=== PATIENT | female | born 1985 | race Caucasian/White ===

== ENCOUNTER 2017-11-10 22:47 | Observation (INO) | payer OTHER ==
[2017-11-11] MEDS ORDERED: HYDROmorphone 0.5 MG/0.5 ML SYRINGE IVP STA (00:01)
[2017-11-11] MEDS ORDERED: ONDANSETRON 4 MG/2 ML VIAL IVP STA (00:01)
[2017-11-11] MEDS ORDERED: SODIUM CHLORIDE 0.9% 1,000 ML IV ONE (00:02)
--- NOTE | 2017-11-11 00:16 | ED ---
Female Urogenital HPI - General Chief complaint: Vaginal Bleeding Stated complaint: hemorrhage Time Seen by Provider: 11/10/17 23:23 Source: EMS Mode of arrival: EMS Limitations: no limitations - History of Present Illness Initial comments: This patient is a 32-year-old woman transferred from [facility] with concerns of possible retained products of conception and possible endometritis. The patient informs us that she had elective on Friday in [place]. She states that since she went home she has been having continued bleeding, and that today she was going through approximately a pad every 15 minutes. She was also having pelvic pains that she described as moderate to severe, crampy/aching. She went to [facility], where she had lab testing and ultrasound. She had some leukocytosis and reportedly had retained products of conception on the ultrasound. She was transferred here as there is no awning assembler coverage there. Additional history reveals that the patient is Rh-, but did receive Rhogam at the clinic on Friday. MD Complaint: vaginal bleeding, pelvic pain Onset/Timin -: days(s) Location: suprapubic Severity: moderate Quality: cramping, sharp Consistency: constant Improves with: medication Worsens with: none Last Menstrual Period: 11/07/17 - Related Data : 4 Para: 2 A: 2 Home Medications Medication Instructions Recorded Confirmed Ibuprofen [Motrin] 800 mg PO Q6H PRN 11/10/17 11/11/17 Allergies Allergy/AdvReac Type Severity Reaction Status Date / Time codeine AdvReac Nausea & Verified 11/11/17 01:50 Vomiting Review of Systems ROS Statement: Those systems with pertinent positive or pertinent negative responses have been documented in the HPI. ROS Other: All systems not noted in ROS Statement are negative. Constitutional: Reports: fever, chills Respiratory: Denies: cough, dyspnea Cardiovascular: Denies: chest pain, palpitations, syncope Gastrointestinal: Reports: abdominal pain, nausea. Denies: vomiting, diarrhea, melena, hematochezia Genitourinary: Reports: abnormal menses. Denies: dysuria, hematuria Musculoskeletal: Denies: back pain Skin: Denies: rash Neurological: Denies: headache, weakness, numbness Hematological/Lymphatic: Denies: easy bleeding Past Medical History Past Medical History: No Reported History History of Any Multi-Drug Resistant Organisms: None Reported Past Surgical History: Section Additional Past Surgical History / Comment(s): right fallopian tube removal Past Psychological History: Anxiety Smoking Status: Current every day smoker Past Alcohol Use History: None Reported Past Drug Use History: None Reported - Past Family History Father Family Medical History: Cancer Additional Family Medical History / Comment(s): leukemia General Exam Limitations: no limitations General appearance: alert, in no apparent distress, other (angry) Head exam: Present: atraumatic, normocephalic Eye exam: Present: normal appearance. Absent: scleral icterus, conjunctival injection Neck exam: Present: normal inspection, full ROM Respiratory exam: Present: normal lung sounds bilaterally. Absent: respiratory distress, wheezes, rales, rhonchi, stridor Cardiovascular Exam: Present: regular rate, normal rhythm, normal heart sounds. Absent: systolic murmur, diastolic murmur, rubs, gallop Neurological exam: Present: alert Psychiatric exam: Present: agitated Skin exam: Present: warm, dry, intact, normal color. Absent: rash Course Vital Signs 11/10/17 11/11/17 22:56 00:57 Temperature 99.1 F 98.8 F Pulse Rate 87 68 Respiratory 18 16 Rate Blood Pressure 110/67 115/70 O2 Sat by Pulse 98 98 Oximetry Medical Decision Making - Medical Decision Making From my prior to my initial interaction, the patient is quite angry. She yells that she is angry about the weight, about having to repeat her story, about not being able to eat anything, about the other hospital having to poke her twice taking 10 and then 6 tubes of blood. She initially wants to sign out AGAINST MEDICAL ADVICE. I did apologize for the delay, and for having to review the previous history. Patient refused gynecologic exam here. Patient refused repeat hemoglobin tonight. Case details and US result was discussed with Dr. Heck, limited patient for further antibiotics and to ensure that D+C is not required. Disposition Clinical Impression: Endometritis following abortive Disposition: ADMITTED IP TO THIS HOSP Condition: Fair
[2017-11-11] MEDS ORDERED: NALOXONE 0.4 MG/ML 1 ML VIAL IV PRN (00:28)
[2017-11-11] MEDS ORDERED: ONDANSETRON 4 MG/2 ML VIAL IVP PRN (00:28)
[2017-11-11] MEDS ORDERED: SODIUM CHLORIDE 0.9% 1,000 ML IV SCH (00:30)
[2017-11-11 00:58] VITALS: RESP 16
[2017-11-11] MEDS ORDERED: cefOXitin IN SWFI 2 GM/10 ML SYRINGE IVP SCH (01:00)
[2017-11-11 01:24] VITALS: BMI 29.1
[2017-11-11 01:56] VITALS: BP 141/72; PULSE 78; TEMP 97.9
[2017-11-11] MEDS: HYDROmorphone 0.5 MG/0.5 ML SYRINGE IVP PRN ×2 (03:31→06:37)
[2017-11-11] MEDS ORDERED: FAMOTIDINE 20 MG TAB PO SCH (09:00)
[2017-11-11] MEDS ORDERED: DOXYCYCLINE 50 MG CAP PO SCH (09:00)
--- NOTE | 2017-11-11 09:59 | P.HPOB ---
History of Present Illness H&P Date: 11/11/17 Chief Complaint: Probable endometritis The patient is a 32-year-old multiparous patient who, by report from the emergency room, underwent an elective last week. She then began to have fever as well as pain and presented to the [facility] emergency room at which time she was found with a fever and an elevated white count. She was transferred to the [facility] emergency room as there is no gynecologic services available at [facility]. In the emergency room, she refused further pelvic examination. Ultrasound performed during her evaluation demonstrated findings consistent with possible retained products of conception. Given her elevated white count and the febrile state, she was admitted for observation and IV antibiotic therapy with the intention of treatment until afebrile for 24-48 hours. Prior to my further evaluating her this morning, she chose to leave AGAINST MEDICAL ADVICE though she refused to sign the AMA papers. She did reportedly receive 1 dose of Mefoxin intravenously. Review of Systems Review of systems is confined to history of present illness. Past Medical History Past Medical History: No Reported History Additional Past Medical History / Comment(s): ectopic 2014 History of Any Multi-Drug Resistant Organisms: None Reported Past Surgical History: Section Additional Past Surgical History / Comment(s): right fallopian tube removal Past Anesthesia/Blood Transfusion Reactions: No Reported Reaction Past Psychological History: ADD/ADHD, Anxiety Smoking Status: Current every day smoker Past Alcohol Use History: Rare Past Drug Use History: Marijuana Additional Drug Use History / Comment(s): pt states she has medical marijuana card. current half pack per day smoker. rare alcohol use - Past Family History Father Family Medical History: Cancer Additional Family Medical History / Comment(s): leukemia Medications and Allergies Home Medications Medication Instructions Recorded Confirmed Type Ibuprofen [Motrin] 800 mg PO Q6H PRN 11/10/17 11/11/17 History Allergies Allergy/AdvReac Type Severity Reaction Status Date / Time codeine AdvReac Nausea & Verified 11/11/17 01:50 Vomiting Exam - Vital Signs Vital signs: Vital Signs Temp Pulse Pulse Resp BP BP Pulse Ox 11/11/17 01:08 97.9 F 78 16 141/72 98 11/11/17 00:57 98.8 F 68 16 115/70 98 11/10/17 22:56 99.1 F 87 18 110/67 98 Intake and Output 11/10/17 11/11/17 11/11/17 22:59 06:59 14:59 Other: Voiding Method Toilet # Voids 1 Weight 63.5 kg 70 kg I am unable to complete any physical examination as the patient has left AGAINST MEDICAL ADVICE. Assessment and Plan (1) Endometritis following abortive Status: Acute Code(s): O03.5 - GENITL TRCT AND PELVIC INFCT FOL COMPLETE OR UNSP SPON ABORT SNOMED Code(s): 82614520 Plan: The patient had been admitted for intravenous antibiotics and started on Mefoxin 2 g every 8 hours with the intention of treatment until afebrile for 24- 48 hours and clinically improved. After a single dose of Mefoxin, the patient is a shows to leave AGAINST MEDICAL ADVICE though she refused to sign papers to that extent. The nursing staff does report that they have a history with this patient previously that she may carry a psychiatric history as well.
== END 2017-11-11 07:20 | disposition left against medical advice (07) ==
LOC: EC 22:47 → 6PED 11-11 00:27
PROVIDERS: ADMIT Obstetrics & Gynecology; ATTEND Obstetrics & Gynecology
DX: O03.5 Genital tract and pelvic infection following complete or unspecified spontaneous abortion (principal); F17.210 Nicotine dependence, cigarettes, uncomplicated; Z80.6 Family history of leukemia; Z88.5 Allergy status to narcotic agent; Z53.21 Procedure and treatment not carried out due to patient leaving prior to being seen by health care provider
CPT/HCPCS: 96361 ×4; 99284; 96374; 96375 ×3; 96376; 86900; 86901; G0378; J2405; J0694; J1170; 99285